=== PATIENT | female | born 1965 | race Caucasian/White ===

== ENCOUNTER → 2020-09-17 | Outpatient (CLI) | payer SELFPAY ==
[~2020-09-17] MED LIST: ALPRAZOLAM1 M2 PO; CITALOPRAM40 MG; DAYPRO600 M1 PO; FETZIMA PO; KLONOPIN0.5 MG PO; KLONOPIN1 MG PO; LATU80TA PO; PRAVACHOL10 MG PO; ROBAXIN750 MG PO; SEROQUEL200 MG PO; SKELAXIN800 MG PO; TRAZODONE150 MG PO; VITAMIN D50000 I1 PO
== END | disposition home or self-care (01) ==
LOC: COVID19 10:42
PROVIDERS: ATTEND Internal Medicine
DX: Z20.822 Contact with and (suspected) exposure to COVID-19 (principal)

== ENCOUNTER 2024-06-27 05:00 | Inpatient (IN) | payer SELFPAY ==
[~2024-06-27] VITALS: Ht 157.4 cm; Wt 76.4 kg
[2024-06-27 05:15] VITALS: BP 165/95
[2024-06-27 06:52] LABS: BASO % 0.2 % (0.0-1.0); EOS % 0.1 % (1.0-4.0); HEMATOCRIT 35.8 % (37.0-47.0); MEAN CORPUSCULAR HGB 31.2 pg (27.0-31.0); MEAN CORPUSCULAR HGB CONC 33.5 g/dl (33.0-37.0); MEAN PLATELET VOLUME 9.5 fl (9.6-12.3); MONO # 0.6 10*3/uL (0.1-1.0); MONO % 4.3 % (3.0-9.0); NEUT # 11.7 10*3/uL (2.3-7.9); NEUT % 87.8 % (47.0-73.0); PLATELET COUNT AUTOMATED 360 10*3/uL (130-400); RED BLOOD COUNT 3.85 10*6/uL (4.10-5.10); RED CELL DISTRI WIDTH 13.5 % (0-14.5); WHITE BLOOD COUNT 13.4 10*3/uL (4.8-10.8)
[2024-06-27 07:43] LABS: ALKALINE PHOSPHATASE 60 U/L (46-116); BUN 10 mg/dl (9-23); CHLORIDE 99 mmol/L (98-107); POTASSIUM 3.5 mmol/L (3.4-5.1); SGPT/ALT 14 U/L (5-49); TOTAL PROTEIN 6.9 gm/dL (6.0-8.0)
[2024-06-27] MEDS ORDERED: Ceftriaxone Sodium 1 GM/10 ML SYR IV ONE (08:20)
[2024-06-27] MEDS ORDERED: AZITHROMYCIN 250 ML IV ONE (08:20)
[2024-06-27] MEDS ORDERED: BISACODYL 5 MG TAB PO PRN (08:55)
[2024-06-27] MEDS ORDERED: TEMAZEPAM 15 MG CAP PO PRN (08:55)
[2024-06-27] MEDS ORDERED: BISACODYL 10 MG SUPP R PRN (08:55)
[2024-06-27] MEDS ORDERED: Ondansetron Hydrochloride 4 MG/2 ML VIAL IV PRN (08:55)
[2024-06-27] MEDS ORDERED: ACETAMINOPHEN 325 MG TAB PO PRN (08:55)
[2024-06-27] MEDS ORDERED: ACETAMINOPHEN 650 MG SUPP R PRN (08:55)
[2024-06-27] MEDS ORDERED: Magnesium Hydroxide 30 ML UDC PO PRN (08:55)
[2024-06-27] MEDS ORDERED: SODIUM CHLORIDE 0.9% 1,000 ML IV SCH (09:00)
[2024-06-27] MEDS ORDERED: Albuterol Sulf/Ipratropium 3 ML VIAL NEB PRN (09:05)
[2024-06-27] MEDS ORDERED: GUAIFENESIN 600 MG TAB ER PO SCH (10:00)
[2024-06-27] MEDS ORDERED: Enoxaparin Sodium 40 MG/0.4 ML SYR SC SCH (10:00)
[2024-06-27 11:23] VITALS: BP 138/85
[2024-06-27 16:02] VITALS: BP 133/80
[2024-06-27 20:00] VITALS: BP 127/86
[2024-06-28] VITALS: BP 122/74
[2024-06-28] MEDS ORDERED: Pantoprazole Sodium 40 MG TAB PO SCH (06:00)
[2024-06-28 06:19] LABS: BASO # 0.1 10*3/uL (0.0-0.1); BASO % 0.6 % (0.0-1.0); EOS % 0.4 % (1.0-4.0); HEMATOCRIT 34.7 % (37.0-47.0); MEAN CELL VOLUME 95.1 fl (81.0-99.0); MEAN CORPUSCULAR HGB 30.4 pg (27.0-31.0); MONO # 0.7 10*3/uL (0.1-1.0); MONO % 8.7 % (3.0-9.0); NEUT # 5.8 10*3/uL (2.3-7.9); NEUT % 70.1 % (47.0-73.0); PLATELET COUNT AUTOMATED 354 10*3/uL (130-400); RED BLOOD COUNT 3.65 10*6/uL (4.10-5.10); RED CELL DISTRI WIDTH 13.9 % (0-14.5); WHITE BLOOD COUNT 8.3 10*3/uL (4.8-10.8)
[2024-06-28 06:25] LABS: ALKALINE PHOSPHATASE 55 U/L (46-116); BUN 8 mg/dl (9-23); CHLORIDE 102 mmol/L (98-107); CHOLESTEROL 130 mg/dL (<200); FREE T4 1.64 ng/dl (0.89-1.76); LDL CHOLESTEROL 65 mg/dL (9-159); POTASSIUM 3.4 mmol/L (3.4-5.1); SGPT/ALT 15 U/L (5-49); TOTAL PROTEIN 6.4 gm/dL (6.0-8.0); TRIGLYCERIDES 121 mg/dl (<150)
[2024-06-28 07:28] LABS: ACT PARTIAL THROMBO TIME 29.6 SECONDS (20.0-32.1)
[2024-06-28 08:00] VITALS: BP 122/74; BP 160/70
[2024-06-28] MEDS ORDERED: AZITHROMYCIN 250 ML IV SCH (08:00)
[2024-06-28 08:48] LABS: VITAMIN D, 25-HYDROXY 9.9 ng/mL (30-100)
[2024-06-28] MEDS ORDERED: Ceftriaxone Sodium 1 GM in SYRINGE INFUSION 10 ML IV SCH (09:00)
[2024-06-28] MEDS ORDERED: ERGOCALCIFEROL 50,000 IU CAP (1.25 MG) PO ONE (09:50)
[2024-06-28] MEDS ORDERED: clonAZEPAM 0.5 MG TAB PO SCH (10:00)
[2024-06-28] MEDS ORDERED: FUROSEMIDE 20 MG/2 ML VIAL IV SCH (10:00)
[2024-06-28 12:00] VITALS: BP 136/70
[2024-06-28 16:00] VITALS: BP 107/71
[2024-06-28 20:00] VITALS: BP 108/66
[2024-06-28] MEDS ORDERED: clonAZEPAM 1 MG TAB PO SCH (22:00)
[2024-06-28] MEDS ORDERED: TRAZODONE HYDROCHLORIDE 150 MG PO SCH (22:00)
[2024-06-28] MEDS ORDERED: SIMVASTATIN 5 MG TABLET PO SCH (22:00)
[2024-06-29] VITALS: BP 124/72
[2024-06-29 06:10] LABS: BASO # 0.1 10*3/uL (0.0-0.1); BASO % 0.8 % (0.0-1.0); EOS # 0.1 10*3/uL (0.0-0.4); EOS % 1.3 % (1.0-4.0); HEMATOCRIT 34.2 % (37.0-47.0); MEAN CELL VOLUME 94.7 fl (81.0-99.0); MEAN CORPUSCULAR HGB 30.5 pg (27.0-31.0); MEAN CORPUSCULAR HGB CONC 32.2 g/dl (33.0-37.0); MEAN PLATELET VOLUME 9.9 fl (9.6-12.3); MONO # 0.7 10*3/uL (0.1-1.0); MONO % 9.1 % (3.0-9.0); NEUT # 4.9 10*3/uL (2.3-7.9); NEUT % 64.7 % (47.0-73.0); PLATELET COUNT AUTOMATED 331 10*3/uL (130-400); RED BLOOD COUNT 3.61 10*6/uL (4.10-5.10); WHITE BLOOD COUNT 7.5 10*3/uL (4.8-10.8)
[2024-06-29 06:42] LABS: BUN 10 mg/dl (9-23); CHLORIDE 103 mmol/L (98-107); POTASSIUM 3.8 mmol/L (3.4-5.1)
[2024-06-29 08:00] VITALS: BP 114/60
[2024-06-29 12:00] VITALS: BP 92/60
[2024-06-29] MEDS ORDERED: ZITHROMAX250 MG PO (12:09)
[2024-06-29] MEDS ORDERED: PREDNISONE50 MG PO (12:10)
[2024-06-29] MEDS ORDERED: OMNICEF300 MG PO (12:10)
== END 2024-06-29 14:41 | disposition home or self-care (01) | DRG 871 ==
LOC: ED 05:00 → EDHOLD 08:20 → 4E 08:20 → EDHOLD 08:57 → 4E 14:23
PROVIDERS: Emergency Medicine; ADMIT Internal Medicine; ATTEND Internal Medicine
DX: A41.9 Sepsis, unspecified organism (principal); J18.9 Pneumonia, unspecified organism; E87.1 Hypo-osmolality and hyponatremia; J90 Pleural effusion, not elsewhere classified; F41.9 Anxiety disorder, unspecified; F31.9 Bipolar disorder, unspecified; E78.5 Hyperlipidemia, unspecified; R73.9 Hyperglycemia, unspecified; D64.9 Anemia, unspecified; E83.39 Other disorders of phosphorus metabolism; F17.210 Nicotine dependence, cigarettes, uncomplicated; Z79.899 Other long term (current) drug therapy; Z79.01 Long term (current) use of anticoagulants; Z79.2 Long term (current) use of antibiotics; Z98.891 History of uterine scar from previous surgery; Z90.711 Acquired absence of uterus with remaining cervical stump; Z82.49 Family history of ischemic heart disease and other diseases of the circulatory system; Z82.3 Family history of stroke; Z83.3 Family history of diabetes mellitus

== ENCOUNTER 2025-05-16 19:14 | Emergency (ER) | payer SELFPAY ==
[~2025-05-16] VITALS: Ht 157.4 cm; Wt 69.4 kg
[~2025-05-16 19:14] MED LIST changes: +OMNICEF300 MG PO; +PREDNISONE50 MG PO; +ZITHROMAX250 MG PO
[2025-05-16 19:50] VITALS: BP 164/101
[2025-05-16] MEDS ORDERED: Pantoprazole Sodium 20 MG TAB PO ONE ×2 (22:20)
[2025-05-16] MEDS ORDERED: OMEPRAZOLE40 MG PO (22:23)
== END 2025-05-16 22:41 | disposition home or self-care (01) ==
LOC: ED 19:14
DX: K22.6 Gastro-esophageal laceration-hemorrhage syndrome (principal); F41.9 Anxiety disorder, unspecified; E78.00 Pure hypercholesterolemia, unspecified; F31.9 Bipolar disorder, unspecified; F17.210 Nicotine dependence, cigarettes, uncomplicated; Z98.890 Other specified postprocedural states; Z90.710 Acquired absence of both cervix and uterus